=== PATIENT | female | born 1965 ===

== ENCOUNTER 2017-10-06 07:11 | Day surgery (SDC) | payer OTHER ==
[2017-08-23 09:51] VITALS: BMI 41.5
[2017-10-06] MEDS ORDERED: MethylPREDNISolone Depo 40 mg/ml Inj ONE (09:17)
[2017-10-06] MEDS ORDERED: EPINEPHrine 1:1000 Nasal Sol(30mL) ONE (09:18)
[2017-10-06] MEDS ORDERED: Lidocaine/Epinephrine 1% 1:100000 10 ML IJ ONE (09:18)
[2017-10-06] MEDS ORDERED: ceFAZolin 1 gm FROZEN Premix 1 GM/50 ML ML IVPB ONE (09:18)
[2017-10-06] MEDS ORDERED: Midazolam 2 MG/2 ML VIAL ONE (09:25)
[2017-10-06] MEDS ORDERED: Propofol 10 mg/ml Inj (20 ML) ONE (09:26)
[2017-10-06] MEDS: Bupivacaine HCl 0.5% PF (30 ml) Inj IJ ONE ×2 (10:29→10:40)
[2017-10-06] MEDS: Morphine 1 mg/ml preservative-free Inj(Duramorph) ONE ×2 (10:29→10:40)
[2017-10-06] MEDS: methylPREDNISolone Depo 80 mg/ml Inj ONE ×2 (10:30→10:40)
[2017-10-06] MEDS: HYDROmorphone 0.5 mg/0.5 ml ISec IVP PRN ×3 (11:20→11:51)
[2017-10-06 13:53] VITALS: BP 147/83; PULSE 88; RESP 18; TEMP 97; O2SAT 96
--- NOTE | 2017-10-07 08:10 | OP ---
PROCEDURE DATE: 10/06/2017 PREOPERATIVE DIAGNOSIS: Internal derangement of the right knee with tear of the medial and lateral menisci. POSTOPERATIVE DIAGNOSES: 1. Severe medial lateral compartmental arthritis. 2. Tearing of medial meniscus posterior horn. 3. Tearing of the mid to posterior part of the lateral meniscus. 4. 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 PROCEDURES: 1. Diagnostic arthroscopy. 2. Partial medial meniscectomy. 3. Partial lateral meniscectomy. 4. Chondroplasty of the medial femoral condyle. 5. Chondroplasty of the medial tibial plateau. 6. Chondroplasty of the lateral femoral condyle. 7. Chondroplasty of the lateral tibial plateau. 8. Injection of Duramorph and Marcaine and Depo-Medrol into the joint area. SURGEON: Ivette Asencio M.D. DESCRIPTION OF PROCEDURE: Prior to the procedure, risks and benefits of the surgery were told over to the patient including infection, cardiac, pulmonary, recurrence, need for future surgery, permanent weakness, permanent numbness, possible loss of life and limb. The patient was told that she has evidence of internal derangement of the knee with arthritis. I explained to her very clearly that arthroscopy is not a cure, but may buy her sometime. Ultimately, she may need further definitive procedures. Also, other treatment options including viscosupplementation. etc., are discussed with the patient. The patient fully understood and agreeable. All the questions were answered. The patient was brought to the operating room, the right knee was identified as the knee to be operated. The right knee was prepped and draped in the usual manner. Using standard lateral approach, diagnostic arthroscopy of the knee was done. The arthroscope was introduced in the suprapatellar pouch, grade 1 chondromalacia of the patella was noted and grade 2 chondromalacia of the trochlea was noted. Chondroplasty of the loose fragments of the trochlea was done. At this time, arthroscope was brought into the lateral gutter. No evidence of loose bodies were found. Then arthroscope was brought into the medial joint line. Medial meniscus was found to have a complex tear of the posterior horn of the medial meniscus extending to the mid portion. Partial medial meniscectomy was done using biters and elizabeth until a smooth rounded contour was obtained. Grade 3 chondromalacia of the medial femoral condyle was noted. Chondroplasty was done. Grade 2 chondromalacia of the medial tibial plateau was seen and chondroplasty was done. Arthroscope was brought into the intercondylar notch. Anterior cruciate ligament was found to be frayed, but intact and competent. Arthroscope was brought to the lateral joint line. Lateral compartment had more extensive changes compared to the medial compartment. A severe grade 3 chondromalacia of the lateral femoral condyle was seen with loose fragments of cartilage hanging from the lateral femoral condyle impending detachment. Chondroplasty with removal of the loose fragments was done. Chondroplasty was done until a smooth rounded contour to the best possible way can be obtained. Complex tear of the lateral meniscus extending from the posterior to the mid portion was seen. Partial lateral meniscectomy was done and severe chondromalacia of the lateral tibial plateau was seen with loss of cartilage and exposure of subchondral bone. Chondroplasty was done. At this point, the joint was thoroughly irrigated. All the loose fragments were suctioned out. Marcaine, Duramorph, and Depo-Medrol were injected into the joint and a compression dressing was applied. The patient tolerated the procedure well. Left the operating room to the recovery room in a satisfactory condition. Ivette Asencio MD
== END 2017-10-06 14:14 | disposition home or self-care (01) ==
LOC: C.SDS 07:11
PROVIDERS: ATTEND Orthopaedic Surgery
DX: M23.221 Derangement of posterior horn of medial meniscus due to old tear or injury, right knee (principal); M23.231 Derangement of other medial meniscus due to old tear or injury, right knee; M23.251 Derangement of posterior horn of lateral meniscus due to old tear or injury, right knee; M22.41 Chondromalacia patellae, right knee
CPT/HCPCS: 29879; 29880; 82948; J0131; J0690; J1040; J1170; J2250; J2270; J2704; J3010

== ENCOUNTER 2017-10-26 07:36 | Day surgery (SDC) | payer OTHER ==
[2017-08-23 09:51] VITALS: BMI 41.5
[2017-10-26] MEDS ORDERED: ceFAZolin 1 gm in NS 0 GM/0 ML BAG IVPB ONE (09:02)
[2017-10-26] MEDS ORDERED: Bupivacaine 0.25% 20 ML INJ IJ ONE (09:02)
[2017-10-26] MEDS ORDERED: Midazolam 2 MG/2 ML VIAL ONE (09:09)
[2017-10-26] MEDS ORDERED: Propofol 10 mg/ml Inj (20 ML) ONE (09:09)
[2017-10-26] MEDS: ceFAZolin IV 2 gm in Dextrose 2 GM/50 ML BAG IVPB ONE ×2 (09:20→09:48)
[2017-10-26] MEDS ORDERED: MethylPREDNISolone Depo 40 mg/ml Inj ONE (09:34)
[2017-10-26] MEDS ORDERED: Lactated Ringer's 1,000 ML IV ONE (10:05)
[2017-10-26] MEDS ORDERED: HYDROmorphone 0.5 mg/0.5 ml ISec IVP PRN (10:06)
[2017-10-26] MEDS ORDERED: Lactated Ringer's 500 ML IV ONE (11:15)
[2017-10-26 11:37] VITALS: BP 104/64; PULSE 64; RESP 18; TEMP 97; O2SAT 98
--- NOTE | 2017-10-26 21:08 | OP ---
PROCEDURE DATE: 10/26/2017 PREOPERATIVE DIAGNOSIS: Carpal tunnel syndrome, left hand. POSTOPERATIVE DIAGNOSIS: Severe carpal tunnel syndrome on the left hand. PROCEDURES: 1. Carpal tunnel release. 2. Local anesthesia block with Marcaine and infiltration of Depo-Medrol into the carpal tunnel area and application of a compression dressing. DESCRIPTION OF PROCEDURE: Prior to the procedure, risks and benefits of the surgery, prognosis and complications explained. The patient has a longstanding history of carpal tunnel syndrome. She has established atrophy at the thenar muscles, and the onset is several years ago. Prognosis is guarded as she has longstanding history of carpal tunnel syndrome, also has established atrophy of the thenar muscles. The patient is told about incomplete relief of symptoms, need for future surgery, recurrence, permanent weakness, permanent numbness, possible loss of life and limb, etc. The patient fully understood and agreeable. All the questions were answered. The patient is told that she may not get a satisfactory result due to the above fact, as she has also diabetes mellitus and element of peripheral neuropathy. Examination revealed highly positive Tinel sign, diminished light touch at the thumb and index fingers, highly positive Phalen sign. The patient was brought to the operating room, the left wrist was identified as the wrist to be operated. The left wrist was prepped and draped in the usual manner. Pneumatic tourniquet was inflated up to 250 mmHg. A third incision was made in the axis of the fourth finger. Dissection was carried down in layers. The transverse carpal ligament was identified. A groove director was used and the transverse carpal ligament was released in its entirety proximal to distal. At the first look, the median nerve was found to be flattened with hourglass constriction. Once the tight ligament was released, the contour of the nerve was partially restored. Some blood vessels could be seen in the course of the median nerve. At the end of the procedure, the nerve was found to be lying free in the carpal tunnel. The wound was thoroughly irrigated. Hemostasis was obtained. Wound was closed. A compression dressing was applied. Depo-Medrol and Marcaine were injected into the carpal tunnel after closure. The patient tolerated the procedure well, left the operating room to the recovery room in a satisfactory condition. Ivette Asencio MD [facility] # [id number]
== END 2017-10-26 11:57 | disposition home or self-care (01) ==
LOC: C.SDS 07:36
PROVIDERS: ATTEND Orthopaedic Surgery
DX: G56.02 Carpal tunnel syndrome, left upper limb (principal); E11.9 Type 2 diabetes mellitus without complications; Z79.899 Other long term (current) drug therapy
CPT/HCPCS: 64721; J0690; J1030; J2250; J2704; J3010; J7120